=== PATIENT | female | born 1995 | race American Indian/Alaskan Native ===

== ENCOUNTER 2020-06-12 14:47 | Inpatient (IN) | payer MEDICAID ==
[2020-06-12] MEDS ORDERED: LACTATED RINGERS 1,000 ML ONE (15:13)
[2020-06-12] MEDS ORDERED: OXYTOCIN DRIP 30,000 MILLIUNITS/500 ML BAG IV ONE (15:13)
[2020-06-12] MEDS ORDERED: AMPICILLIN/NS 2 GM/100 ML 2 GM/100 ML BAG IV ONE ×2 (15:15→15:41)
[2020-06-12] MEDS ORDERED: LIDOCAINE (2%) 20 MG/1 ML VIAL 20 ML MDV INFILTRATI ONE ×2 (15:19→16:00)
[2020-06-12] MEDS ORDERED: MINERAL OIL 30 ML ORAL LIQD ONE (15:19)
[2020-06-12] MEDS ORDERED: TERBUTALINE 1 MG/1 ML INJ SUB-Q PRN (15:41)
[2020-06-12] MEDS ORDERED: fentaNYL 100 MCG/2 ML INJ IV PRN (15:41)
[2020-06-12] MEDS ORDERED: ePHEDrine SULFATE 50 MG/1 ML INJ IV PRN (15:41)
[2020-06-12] MEDS ORDERED: MAGNESIUM HYDROXIDE (MOM) ORAL LIQD UDC PO PRN (15:45)
[2020-06-12] MEDS ORDERED: WITCH HAZEL/ GLYCERIN PAD TP PRN (15:45)
[2020-06-12] MEDS ORDERED: LANOLIN/ZINC/DIMETHICONE (LANSINOH) 7 GM TP PRN (15:45)
[2020-06-12] MEDS ORDERED: LACTATED RINGERS 1,000 ML IV SCH (15:45)
[2020-06-12] MEDS: IBUPROFEN 600 MG TAB PO SCH ×2 (16:00→23:09)
[2020-06-12] MEDS ORDERED: OXYTOCIN DRIP 30 UNITS/500 ML BAG IV SCH (16:00)
[2020-06-12 16:02] LABS: Hematocrit 31.8 % (30.3-42.9); Hemoglobin 10.6 gm/dl (10.1-14.3); Mean Corpuscular HGB Conc 33 % (30-34); Mean Corpuscular Volume 73 fl (79-97); Platelet Count 338 K/mm3 (140-440); Red Blood Count 4.33 M/mm3 (3.65-5.03); Red Cell Distribution Width 16.6 % (13.2-15.2)
--- NOTE | 2020-06-12 16:15 | History and Physical Report ---
History of Present Illness Date of examination: 06/12/20 Date of admission: 06/12/20 14:48 Chief complaint: Contractions History of present illness: 24 year old female presents to L&D with complaint of contractions. Patient found to be in advanced labor upon arrival with SVE as follows: anterior lip/100/+1/BBOW. Patient states she has received care at [facility]. No records are available. labs were drawn upon admission. Patient states her EDC is 06/25/2020. Past History Past Medical History: no pertinent history Past Surgical History: no surgical history [employer] History: denies: chlamydia, gonorrhea, hepatitis B, hepatitis C, herpes, HIV, syphilis, trichomonas Family/Genetic History: none Social history: lives with family, full code. denies: smoking, alcohol abuse, prescription drug abuse, IV drug use - Obstetrical History Expected Date of Delivery: 06/25/20 Actual Gestation: 38 Week(s) 1 Day(s) : 2 Para: 1 Hx # Term Pregnancies: 1 Number of Pregnancies: 0 Spontaneous Abortions: 0 Induced : 0 Number of Living Children: 1 Medications and Allergies Allergies Allergy/AdvReac Type Severity Reaction Status Date / Time shrimp Allergy Swelling Verified 06/01/19 09:51 Home Medications Medication Instructions Recorded Confirmed Last Taken Type Acetaminophen/Codeine [Tylenol 1 tab PO Q6H PRN #12 tab 06/01/19 Unknown Rx /Codeine # 3 tab] Amoxicillin/K Clav Tab [Augmentin 1 tab PO Q12HR #20 tab 06/01/19 Unknown Rx 875 mg] Chlorhexidine Mouthwash [Peridex] 15 ml MM BID #1 bottle 06/01/19 Unknown Rx Active Meds: Active Medications Hydrocodone Bitart/Acetaminophen (Hydrocodone/Acetaminophen 5-325 Mg Tab) 2 each PO Q6H PRN PRN Reason: Pain, Moderate (4-6) Lactated Ringer's (Lactated Ringers) 1,000 mls @ 125 mls/hr IV DIRECT GUSTAVO Oxytocin/Sodium Chloride (Pitocin/Ns 30 Unit/500ml) 30 units in 500 mls @ 40 mls/hr IV TITR GUSTAVO; Protocol Ibuprofen (Ibuprofen 600 Mg Tab) 600 mg PO Q6H GUSTAVO Last Admin: 06/12/20 16:00 Dose: 600 mg Documented by: Magnesium Hydroxide (Magnesium Hydroxide (Mom) Oral Liqd Udc) 30 ml PO HS PRN PRN Reason: Constipation Methylergonovine Maleate (Methylergonovine 0.2 Mg Tablet) 0.2 mg PO Q8H GUSTAVO Multi-Ingredient Ointment (Lanolin/Zinc/Dimethicone (Lansinoh) 7 Gm) 1 applic TP PRN PRN PRN Reason: Sore Nipples Sodium Chloride (Sodium Chloride 0.9% 10 Ml Flush Syringe) 10 ml IV PRN NR Stop: 06/12/20 23:59 Witch Kriss/Glycerin (Witch Kriss/ Glycerin Pad) 1 each TP PRN PRN PRN Reason: Hemorrhoid/cleansing/soothing Review of Systems All systems: negative (contractions, need to push) - Vital Signs Vital signs: Vital Signs Pulse BP 95 H 122/58 06/12/20 15:35 06/12/20 15:35 Temp Pulse Resp BP Pulse Ox 95 H 18 122/58 06/12/20 15:35 06/12/20 16:00 06/12/20 15:35 - Physical Exam Abdomen: Positive: normal appearance, soft. Negative: distention, tenderness, guarding, rigidity Genitourinary (Female): Positive: normal external genitalia, normal perenium. Negative: perineal/vulvar lesions Vagina: Positive: normal moisture Uterus: Positive: enlarged. Negative: tender Anus/Rectum: Positive: normal perianal skin Extremities: Positive: normal. Negative: tenderness, edema - Obstetrical FHR: category 2 Uterine Contraction Monitor Mode: External Cervical Dilatation: 9.5 Cervical Effacement Percentage: 100 station: +1 Uterine Contraction Pattern: Regular Uterine Contraction Intensity: Strong/Firm Results Result Diagrams: 06/12/20 15:30 Abnormal lab results 06/12/20 Range/Units 15:30 WBC 12.6 H (4.5-11.0) K/mm3 MCV 73 L (79-97) fl MCH 25 L (28-32) pg RDW 16.6 H (13.2-15.2) % All other labs normal. Assessment and Plan A: at 38 weeks, 1 day gestation. Active advanced labor. GBS unknown. No records available. P: Admit. GBS prophylaxis. EFM. Anticipate vaginal .
--- NOTE | 2020-06-12 16:22 | Procedure Note ---
OB Delivery Note - Delivery Date of Delivery: 06/12/20 Surgeon: RITA MOONEY Estimated blood loss: 200cc - Vaginal Delivery presentation: vertex Delivery position: OA Intrapartum events: none Delivery induction: none Delivery augmentation: rupture of membranes Delivery monitor: external FHT, external uterine Route of delivery: Delivery placenta: spontaneous Delivery cord: 3 umbilical vessels Episiotomy: none Delivery laceration: none Anesthesia: none Delivery comments: Spontaneous vaginal delivery at 15:30 of liveborn female weighing 6.773 kg over intact perineum with apgars of 8/9. Precipitous labor. Patient delivered right away after getting into birthing room. Received partial dose of IV Ampicillin prior to delivery (GBS unknown as no records available). No nuchal cord; was atraumatic. Baby was vigorous and cried right away; baby was placed skin to skin with mom immediately after and was dried with warm towels and bulb suctioned. 3 vessel cord double clamped and cut; baby taken to radiant warmer for further suctioning. Spontaneous delivery of placenta and membranes at 15:32; placenta appears intact but membranes do not appear intact. Vaginal/cervical sweep reveals no membranes. Vaginal sweep negative. Pitocin started IV after delivery of placenta. PO Methergine series also started. No lacerations noted. Sponge count correct. Mother and baby stable.
[2020-06-12 16:26] LABS: Hepatitis C Virus Antibody Non-Reactive (NonReactive)
[2020-06-12] MEDS: METHYLERGONOVINE 0.2 MG TABLET PO SCH ×2 (16:40→23:10)
[2020-06-12] MEDS: HYDROcodone/ACETAMINOPHEN 5-325 MG TAB PO PRN (17:50)
[2020-06-12 21:31] LABS: Amphetamine Screen,Urine Negative; Benzodiazepines Screen,Urine Negative; Cocaine Screen,Urine Negative; Methadone Screen,Urine Negative; Opiate Screen,Urine Negative
[2020-06-12 21:42] LABS: Cannabinoid Screen,Urine Positive
[2020-06-13] MEDS: IBUPROFEN 600 MG TAB PO SCH ×2 (06:23→12:30)
[2020-06-13 06:54] LABS: Hematocrit 31.5 % (30.3-42.9); Hemoglobin 9.9 gm/dl (10.1-14.3)
[2020-06-13] MEDS: METHYLERGONOVINE 0.2 MG TABLET PO SCH ×2 (08:05→21:58)
--- NOTE | 2020-06-13 11:12 | Progress Note ---
Assessment and Plan A: PP Day #1 Asymptomatic Anemia +UDS (THC) P: Follow Routine Orders FeSO4 325mg PO BID Machine I Trimmer Consult Pending D/C home in the AM RTO in 6 Weeks Subjective - Subjective Date of service: 06/13/20 Patient reports: appetite normal, voiding normally, pain well controlled, flatus, ambulating normally : doing well, bottle feeding Objective - Vital Signs Latest vital signs: Vital Signs Temp Pulse Resp BP BP Pulse Ox 06/13/20 08:00 98.7 F 63 18 111/69 06/13/20 07:15 18 06/13/20 06:23 18 06/13/20 04:00 98.6 F 78 16 102/79 06/13/20 00:09 18 06/13/20 00:00 98.6 F 68 18 118/79 06/12/20 23:09 18 06/12/20 20:53 98.1 F 74 16 121/60 96 06/12/20 18:50 18 06/12/20 17:06 98.2 F 68 22 130/66 98 06/12/20 16:00 18 06/12/20 15:35 98.6 F 95 H 18 122/58 122/58 Intake and Output 06/12/20 06/13/20 06/13/20 22:59 06:59 14:59 Intake Total 120 980 240 Output Total 300 1200 Balance -180 -220 240 Intake: Oral 680 240 Intake, Free Water 120 300 Output: Urine 300 1200 Void 300 1200 Other: Total, Intake Amount 120 240 Total, Output Amount 300 600 # Voids Void 1 1 1 Weight 60.781 kg Estimated Blood Loss 200 - Exam Breasts: Present: normal Cardiovascular: Present: Regular rate Lungs: Present: Clear to auscultation, Normal air movement Abdomen: Present: normal appearance, soft, normal bowel sounds Uterus: Present: normal, firm, fundal height below umbilicus Extremities: Present: normal - Labs Labs: Abnormal lab results 06/12/20 06/13/20 Range/Units 15:30 03:56 WBC 12.6 H (4.5-11.0) K/mm3 Hgb 9.9 L (10.1-14.3) gm/dl MCV 73 L (79-97) fl MCH 25 L (28-32) pg RDW 16.6 H (13.2-15.2) %
--- NOTE | 2020-06-13 11:13 | Discharge Summary ---
Providers - Providers Date of Admission: 06/12/20 14:48 Date of discharge: 06/14/20 Attending physician: STAS CARMONA MD 06/13/20 06:39 Consult to Case Management [CONS] Routine Services Needed at Discharge: Machinist 2Nd Shift Comment:: Positive drug screen (marijuana) Primary care physician: STAS CARMONA MD Hospitalization Reason for admission: active labor Delivery: Episiotomy: none Laceration: none Other procedures: none complications: none Discharge diagnosis: IUP at term delivered Condition at discharge: Good Disposition: DC-01 TO HOME OR SELFCARE Plan - Provider Discharge Summary Activity: routine, no sex for 6 weeks, no heavy lifting 4 weeks, no strenuous exercise Diet: routine Instructions: routine Additional instructions: [] Smoking cessation referral if applicable(refer to patient education folder for contact #) [] Refer to [facility]'s [facility] Booklet Call your doctor immediately for: * Fever > 100.5 * Heavy vaginal bleeding ( >1 pad per hour) * Severe persistent headache * Shortness of breath * Reddened, hot, painful area to leg or breast * Drainage or odor from incision. * Keep incision clean and dry at all times and follow doctor's instructions regarding bathing/showering - Follow up plan Follow up: STAS CARMONA MD [Primary Care Provider] - 6 Weeks
[2020-06-13] MEDS: FERROUS SULFATE 325 MG TAB PO SCH ×2 (12:30→21:58)
[2020-06-14] MEDS: IBUPROFEN 600 MG TAB PO SCH ×2 (00:08→05:34)
[2020-06-14] MEDS: HYDROcodone/ACETAMINOPHEN 5-325 MG TAB PO PRN (02:22)
[2020-06-14 11:56] VITALS: BP 112/75
== END 2020-06-14 13:28 | disposition home or self-care (01) | DRG 775 ==
LOC: TRG 14:47 → APU 14:47 → LD 14:47 → TRG 14:48 → LD 14:48 → OB 17:55
PROVIDERS: ADMIT Obstetrics & Gynecology; ATTEND Obstetrics & Gynecology
PROC: 10E0XZZ Delivery of Products of Conception, External Approach (ICD-10-PCS; principal; 2020-06-12)
DX: O80 Encounter for full-term uncomplicated delivery (principal); Z3A.38 38 weeks gestation of pregnancy; Z37.0 Single live birth
CPT/HCPCS: 36415; 80307; 85014; 85018; 85027; 86592; 86706; 86762; 86803; 86850; 86900; 86901; 87806; G0378; J0290; J2590; J7120